=== PATIENT | female | born 1985 | race Caucasian/White ===

== ENCOUNTER 2018-10-09 03:25 | Inpatient (IN) ==
[2018-10-09] MEDS ORDERED: OXYTOCIN 30 UNITS/500 ML BAG IV PRN ×4 (04:04→20:49)
[2018-10-09] MEDS ORDERED: LACTATED RINGER'S 1,000 ML IV PRN ×4 (04:04→11:32)
[2018-10-09] MEDS ORDERED: PENICILLIN G POTASSIUM 6 MU in DEXTROSE 5% 250 ML IV STA ×2 (04:04→11:32)
[2018-10-09] MEDS: LACTATED RINGER'S 1,000 ML IV SCH ×3 (04:51→17:38)
[2018-10-09 04:57] LABS: Hematocrit (blood only) 34.5 % (37-47); Hemoglobin 11.9 g/dL (12.0-16.0); Mean Corpuscular Volume 95.6 fL (80-100); Mean Platelet Volume 11.4 fL (7.4-10.4); Platelet Count 179 K/uL (130-400); RDW Coefficient of Variation 12.5 % (11.5-14.5); Red Blood Count 3.61 M/uL (4.2-5.4); White Blood Count 10.07 K/uL (4.8-10.8)
[2018-10-09 04:58] LABS: Mean Corpuscular Hgb Conc 34.5 g/dL (32-36)
--- NOTE | 2018-10-09 05:21 | History & Physical Report ---
Date of Service October 09, 2018 Assessment & Plan (1) Amniotic fluid leakin yo at 38.4 wks with SROM, GBS+ VSS Afebrile FHR reassuring Discussed augmentation of labor with oxytocin and decreased risk of intraamniotic infection Agrees with oxytocin PCN for GBS Continue to monitor History of Present Illness Chief Complaint: Leaking Primary Care Provider: NO PCP Patient is a 33 yo at 38.4 wks who has been leaking fluids from vagina since 2 am It has been clear. Mild ctxs No VB +FM's Her has been uncomplicated except GBS+ Allergies Allergy/AdvReac Type Severity Reaction Status Date / Time No Known Allergies Allergy Mild Verified 10/09/18 04:09 Home Medications Home Medications Medication Instructions Recorded Confirmed Type vit-iron fum-folic ac 1 tab PO DAILY 09/23/18 10/09/18 History [ Vitamin] Patient History Medical History Thompson teeth removed Social History marital status: Single Current Living Situation: Significant Other Other Information That Helps Us Care for You: No Feels Safe at Home: Yes Safety Concerns: Feels Safe At This Time Smoking Status: Never smoker Hx Alcohol Use: No Hx Substance Use: No Beliefs That Will Affect Care: None Preferred Language: Guatemalan Communication Ability: Effective [employer]IED [employer] History No h/o STD's Review of Systems All systems reviewed & are unremarkable except as noted in HPI & below Physical Exam 2 Vital Signs (Past 24 Hours): Last Vital Signs Temp 36.9 C 10/09/18 04:30 Pulse 81 10/09/18 03:38 Resp 18 10/09/18 04:30 BP 120/82 10/09/18 03:38 Constitutional: WD/WN, vitals as above well nourished, + well hydrated and comfortable Gastrointestinal (Abdomen): soft, NT, gravid, Oscar 7-8 lb Genitourinary: Cervix 2 cm/ 70%/ -2, vertex Results & Data Laboratory Results 10/09/18 10/09/18 Range/Units 04:24 04:10 WBC 10.07 (4.8-10.8) K/uL RBC 3.61 L (4.2-5.4) M/uL Hgb 11.9 L (12.0-16.0) g/dL Hct 34.5 L (37-47) % MCV 95.6 (80-100) fL MCH 33.0 (25-34) pg MCHC 34.5 (32-36) g/dL RDW Std Deviation 43.0 (36.4-46.3) fL RDW Coeff of Jaspreet 12.5 (11.5-14.5) % Plt Count 179 (130-400) K/uL MPV 11.4 H (7.4-10.4) fL Amniotic Protein POS Monitoring External Monitor Categ I Tocodynamometer mild ctxs q 4-5 min
[2018-10-09] MEDS ORDERED: ePHEDrine sulfate 50 MG/ML AMP ONE (07:33)
[2018-10-09] MEDS ORDERED: BUPIVACAINE 0.25% 30 ML VIAL ONE (07:33)
[2018-10-09] MEDS ORDERED: fentaNYL 2MCG/ML ROPIV 1.25MG/ML 100 ML BAG EPI ONE ×2 (07:34→16:44)
[2018-10-09] MEDS ORDERED: fentaNYL citrate 100 MCG/2 ML VIAL ONE (07:34)
--- NOTE | 2018-10-09 08:10 | Anesthesiology Consultation ---
Date of Service October 09, 2018 Assessment & Plan (1) Encounter for pre-operative examination: Chart Review Chart Review: Patient NOT seen in Pre Admission Testing and Acceptable Risk for Labor Epidural Consults Requested none ASA ASA2 Proposed Anesthesia Anesthesia Type: Labor Epidural and CSE Risk / Benefits Reviewed With: PT / POA / Parent / Guardian, Accepts Plan and Informed Consent Obtained NPO Date Last Intake of Fluids: 10/08/18 Time Last Intake of Fluids: 23:00 Date Last Intake of Solids: 10/08/18 Time Last Intake of Solids: 23:00 History Height/Weight Height: 5 ft 4 in Weight: 101.605 kg Allergies Allergy/AdvReac Type Severity Reaction Status Date / Time No Known Allergies Allergy Mild Verified 10/09/18 04:09 Medications Home Medications Medication Instructions Recorded Confirmed Last Taken vit-iron fum-folic ac 1 tab PO DAILY 09/23/18 10/09/18 10/08/18 23:30 [ Vitamin] Active Medications Generic Name Dose Route Start Last Admin Trade Name Freq PRN Reason Stop Dose Admin Lactated Ringer's 1,000 mls @ 125 mls/hr 10/09/18 04:15 10/09/18 08:10 Lr IV 10/11/18 04:14 125 mls/hr .Q8H TYLER Infusion Lactated Ringer's 1,000 mls @ 999 mls/hr 10/09/18 04:04 10/09/18 08:09 Lr IV 11/08/18 04:03 0 mls/hr .Q1H1M PRN Titration (Pre-Anesthesia) Oxytocin 30 units in 500 mls @ 5 mls/hr 10/09/18 05:18 10/09/18 07:01 Pitocin IV 10/11/18 05:17 0.3 units/hr .Q24H PRN 5 mls/hr Labor Induction/Augmentation Titration Protocol 0.3 UNITS/HR Past Medical History Medical History Freedom teeth removed Social History Smoking Status: Never smoker Hx Alcohol Use: No Hx Substance Use: No Review of Systems no chest pain or sob Physical Exam Vital Signs Last Vital Signs Temp 36.9 C 10/09/18 07:11 Pulse 69 10/09/18 08:09 Resp 18 10/09/18 07:11 BP 120/80 10/09/18 07:36 Pulse Ox 98 10/09/18 08:09 Constitutional + obese ENMT Mouth: no dentition abnormality Respiratory normal respiratory effort Cardiovascular Rate/Rhythm: regular rate and regular rhythm Musculoskeletal Spine: no pain with cervical ROM Neurologic moves all extremities Psychiatric Orientation: alert and oriented x 3 Testing Laboratory Results 10/09/18 04:24
[2018-10-09] MEDS ORDERED: NALBUPHINE HCL INJ 10 MG/ML AMP IV PRN (08:29)
[2018-10-09] MEDS ORDERED: ePHEDrine sulfate 50 MG/ML AMP IV PRN (08:29)
[2018-10-09] MEDS ORDERED: DiphenhydrAMINE HCL 50 MG/ML VIAL IV PRN (08:29)
[2018-10-09] MEDS ORDERED: NALOXONE HCL 0.4 MG/1 ML VIAL/CARP IV PRN (08:29)
[2018-10-09] MEDS ORDERED: fentaNYL 2MCG/ML ROPIV 1.25MG/ML 100 ML BAG EPI PRN (08:29)
[2018-10-09] MEDS ORDERED: ONDANSETRON INJ 2 MG/ML 2 ML VIAL IV PRN ×2 (08:29→21:20)
[2018-10-09] MEDS ORDERED: NALOXONE HCL 1 MG in SODIUM CHLORIDE 0.9% 1000ML 1,000 ML IV PRN (08:29)
[2018-10-09] MEDS: PENICILLIN G POTASSIUM 3 MU in DEXTROSE 5% 100 ML IV PRN ×3 (08:56→19:21)
--- NOTE | 2018-10-09 09:26 | Labor Progress Brief Note ---
Date of Service October 09, 2018 Pt doing well SROM@ 0200HRs- clear On Pitocin FHR; CAt1 Ctx 1-3mins VE; 2cm Bedside sono; VT Physical Exam 2 Vital Signs (Past 24 Hours): Last Vital Signs Temp 36.9 C 10/09/18 07:11 Pulse 63 10/09/18 09:19 Resp 18 10/09/18 07:11 BP 141/82 H 10/09/18 09:13 Pulse Ox 98 10/09/18 09:19
[2018-10-09] MEDS ORDERED: PENICILLIN G POTASSIUM 3 MU in DEXTROSE 5% 100 ML IV PRN (11:32)
[2018-10-09] MEDS ORDERED: LACTATED RINGER'S 1,000 ML IV SCH (11:45)
--- NOTE | 2018-10-09 12:01 | Labor Progress Brief Note ---
Date of Service October 09, 2018 Pt doing well SROM Pit; 13mu ctx 1-3mins FHR; CAt1 VE 6-7/75/-3 Physical Exam 2 Vital Signs (Past 24 Hours): Last Vital Signs Temp 37.0 C 10/09/18 10:30 Pulse 69 10/09/18 11:54 Resp 18 10/09/18 10:30 BP 125/70 10/09/18 11:44 Pulse Ox 98 10/09/18 11:54
--- NOTE | 2018-10-09 15:53 | Labor Progress Brief Note ---
Date of Service October 09, 2018 doing well Repetitive early decles Position change has improved decels Pitocin off' IVF and oxygen given FHR improved to CAT1 VE 9cm/100/-1 No meconum presents Afebrile Plan expectant management Physical Exam 2 Vital Signs (Past 24 Hours): Last Vital Signs Temp 37.2 C 10/09/18 15:30 Pulse 73 10/09/18 15:49 Resp 22 10/09/18 15:30 BP 120/66 10/09/18 15:43 Pulse Ox 100 10/09/18 15:49
--- NOTE | 2018-10-09 17:27 | Labor Progress Brief Note ---
Date of Service October 09, 2018 Pt was sen last night and discharged this AM after evaluation for chest pain and right CVAT She has CT, pelvic sono and PE work up that was all nml. she returned back to L&D this PM because her pain persisted On arrival she has received pain meds, and IVH Pelvic exam : ft/post/ no effacement pt feels better and now wishes to go home disch with instructions Physical Exam 2 Vital Signs (Past 24 Hours): Last Vital Signs Temp 37.2 C 10/09/18 15:30 Pulse 62 10/09/18 17:19 Resp 20 10/09/18 17:00 BP 132/72 10/09/18 17:14 Pulse Ox 99 10/09/18 17:19
--- NOTE | 2018-10-09 18:08 | Labor Progress Brief Note ---
Date of Service October 09, 2018 Pt doing well FHR; CAT1 cxt ; 1-3mins pit; 4Mu VE; 10/100/0 Pt not feeling urge to push Plan pt will start to push when she feels pelvic pressure Physical Exam 2 Vital Signs (Past 24 Hours): Last Vital Signs Temp 37.2 C 10/09/18 15:30 Pulse 66 10/09/18 18:04 Resp 20 10/09/18 17:30 BP 132/79 10/09/18 17:58 Pulse Ox 99 10/09/18 18:04
--- NOTE | 2018-10-09 19:34 | Labor Progress Brief Note ---
Date of Service October 09, 2018 Pt doing well FHR CAT1 Ctx 1-3mins pit 7mu VE 10/100/+1 will start pushing Physical Exam 2 Vital Signs (Past 24 Hours): Last Vital Signs Temp 37.7 C H 10/09/18 19:00 Pulse 83 10/09/18 19:29 Resp 20 10/09/18 19:00 BP 144/82 H 10/09/18 19:28 Pulse Ox 99 10/09/18 19:29
[2018-10-09] MEDS ORDERED: METHYLERGONOVINE MALEATE 0.2 MG/ML AMP ONE (20:43)
[2018-10-09] MEDS ORDERED: miSOPROStol 200 MCG TAB PR ONE (20:49)
[2018-10-09] MEDS ORDERED: BISACODYL 10 MG SUPP PR PRN (20:49)
[2018-10-09] MEDS ORDERED: SUPERCREAM 0.870% 15 GM JAR EXT PRN (20:49)
[2018-10-09] MEDS ORDERED: METHYLERGONOVINE MALEATE 0.2 MG/ML AMP IM ONE (20:49)
[2018-10-09] MEDS ORDERED: ACETAMINOPHEN W/CODEINE #3 1 TAB PO PRN (20:49)
[2018-10-09] MEDS ORDERED: DIPHTHERIA/TETANUS/PERTUSSIS 0.5 ML SYR/VIAL IM ONE (20:49)
[2018-10-09] MEDS ORDERED: HYDROCORTISONE ACETATE 25 MG SUPP PR PRN (20:49)
[2018-10-09] MEDS ORDERED: OXYCODONE/ACETAMINOPHEN 5mg/325mg TAB PO PRN (20:49)
[2018-10-09] MEDS ORDERED: BENZOCAINE 20% AER SPR 82.5 GM CAN EXT PRN (20:49)
[2018-10-09] MEDS ORDERED: miSOPROStol 200 MCG TAB ONE (21:04)
[2018-10-09] MEDS: OXYTOCIN 20 UNITS in LACTATED RINGER'S 1,000 ML IV SCH (21:23)
--- NOTE | 2018-10-09 21:57 | Anesthesia Procedure Note ---
Date of Service October 09, 2018 Anesthesia Post Epidural Note Vital Signs Vital Signs: Temp Pulse Resp BP Pulse Ox 10/09/18 21:49 63 122/68 10/09/18 21:34 68 131/65 10/09/18 21:33 20 10/09/18 21:24 65 126/63 10/09/18 21:18 20 10/09/18 21:13 82 129/65 10/09/18 21:05 73 134/68 10/09/18 21:03 20 10/09/18 20:58 127/60 10/09/18 20:48 37.8 C H 107 H 20 118/64 10/09/18 20:44 94 H 99 10/09/18 20:43 96 H 128/69 10/09/18 20:42 98 H 136/73 10/09/18 20:39 96 H 98 10/09/18 20:34 101 H 98 10/09/18 20:29 117 H 97 10/09/18 20:28 121 H 114/65 10/09/18 20:27 126 H 130/63 10/09/18 20:24 154 H 97 10/09/18 20:19 141 H 99 10/09/18 20:15 136 H 89 L 10/09/18 20:14 142 H 128/77 98 10/09/18 20:09 117 H 100 10/09/18 20:04 97 H 99 10/09/18 20:00 22 10/09/18 19:59 95 H 98 10/09/18 19:58 110 H 152/88 H 10/09/18 19:54 98 H 100 10/09/18 19:49 100 H 99 10/09/18 19:47 95 H 92 10/09/18 19:44 79 151/86 H 100 10/09/18 19:39 76 100 10/09/18 19:34 90 100 10/09/18 19:30 20 10/09/18 19:29 83 99 10/09/18 19:28 77 144/82 H 10/09/18 19:24 81 98 10/09/18 19:19 82 98 10/09/18 19:14 73 142/79 H 99 10/09/18 19:09 82 98 10/09/18 19:04 76 99 10/09/18 19:00 37.7 C H 60 20 125/73 10/09/18 18:59 75 98 10/09/18 18:54 92 H 97 10/09/18 18:49 65 99 10/09/18 18:44 72 99 10/09/18 18:43 62 141/80 H 10/09/18 18:39 78 99 10/09/18 18:34 60 99 10/09/18 18:30 20 10/09/18 18:29 58 L 99 10/09/18 18:28 55 L 136/76 10/09/18 18:24 57 L 99 10/09/18 18:19 55 L 99 10/09/18 18:14 66 154/77 H 96 10/09/18 18:09 83 100 10/09/18 18:04 66 99 10/09/18 18:00 37.5 C 20 10/09/18 17:59 87 99 10/09/18 17:58 132/79 10/09/18 17:54 83 100 10/09/18 17:49 62 100 10/09/18 17:44 65 99 10/09/18 17:43 65 131/74 10/09/18 17:39 94 H 100 10/09/18 17:34 103 H 100 10/09/18 17:30 20 10/09/18 17:29 62 131/73 98 10/09/18 17:24 65 99 10/09/18 17:19 62 99 10/09/18 17:14 59 L 132/72 99 10/09/18 17:09 82 98 10/09/18 17:04 60 100 10/09/18 17:00 20 10/09/18 16:59 66 100 10/09/18 16:58 73 124/75 10/09/18 16:54 64 100 10/09/18 16:49 64 99 10/09/18 16:45 68 134/84 10/09/18 16:44 76 99 10/09/18 16:39 65 100 10/09/18 16:34 62 100 10/09/18 16:29 63 130/75 99 10/09/18 16:24 62 98 10/09/18 16:19 80 100 10/09/18 16:14 71 131/81 100 10/09/18 16:09 69 99 10/09/18 16:04 63 100 10/09/18 15:59 66 142/78 H 98 10/09/18 15:54 64 100 10/09/18 15:49 73 100 10/09/18 15:44 62 100 10/09/18 15:43 80 120/66 10/09/18 15:39 61 100 10/09/18 15:34 77 100 10/09/18 15:30 37.2 C 22 10/09/18 15:29 99 H 132/81 100 10/09/18 15:24 138 H 100 10/09/18 15:19 72 100 10/09/18 15:14 85 140/86 100 10/09/18 15:09 80 100 10/09/18 15:04 58 L 100 10/09/18 14:59 57 L 157/89 H 100 10/09/18 14:54 74 99 10/09/18 14:49 76 98 10/09/18 14:43 69 126/76 10/09/18 14:39 63 100 10/09/18 14:34 65 99 10/09/18 14:30 37.0 C 69 20 100 10/09/18 14:29 94 H 115/71 98 10/09/18 14:24 87 99 10/09/18 14:19 78 98 10/09/18 14:15 63 126/73 10/09/18 14:14 63 99 10/09/18 14:09 112 H 99 10/09/18 14:04 103 H 99 10/09/18 14:00 71 136/73 10/09/18 13:59 76 99 10/09/18 13:54 71 99 10/09/18 13:49 71 100 10/09/18 13:44 71 130/72 100 10/09/18 13:39 67 100 10/09/18 13:34 73 99 10/09/18 13:30 88 108/70 10/09/18 13:29 88 99 10/09/18 13:24 65 99 10/09/18 13:19 78 100 10/09/18 13:15 59 L 150/88 H 10/09/18 13:14 60 99 10/09/18 13:09 77 99 10/09/18 13:04 66 97 10/09/18 12:59 75 98 10/09/18 12:58 66 129/81 01/04/19 12:54 59 L 99 10/09/18 12:49 60 98 10/09/18 12:44 62 98 10/09/18 12:43 64 123/75 10/09/18 12:39 66 98 10/09/18 12:34 58 L 99 10/09/18 12:30 37.1 C 58 L 20 132/79 98 10/09/18 12:29 58 L 98 10/09/18 12:24 59 L 98 10/09/18 12:19 58 L 99 10/09/18 12:14 62 134/76 99 10/09/18 12:09 59 L 98 10/09/18 12:04 78 98 10/09/18 12:00 61 129/82 10/09/18 11:59 69 98 10/09/18 11:54 69 98 10/09/18 11:49 61 98 10/09/18 11:44 62 125/70 98 10/09/18 11:39 64 98 10/09/18 11:34 73 99 10/09/18 11:30 56 L 99/57 L 10/09/18 11:29 60 98 10/09/18 11:24 69 98 10/09/18 11:19 66 98 10/09/18 11:15 68 92/52 L 10/09/18 11:14 68 97 10/09/18 11:09 66 99 10/09/18 11:04 90 97 10/09/18 10:59 62 97 10/09/18 10:58 68 98/53 L 10/09/18 10:54 54 L 97 10/09/18 10:49 54 L 97 10/09/18 10:44 58 L 99/56 L 97 10/09/18 10:40 59 L 97/53 L 10/09/18 10:39 58 L 98 10/09/18 10:34 69 97 10/09/18 10:30 37.0 C 72 18 100/56 L 98 10/09/18 10:29 61 97 10/09/18 10:24 75 97 10/09/18 10:19 71 96 10/09/18 10:14 105 H 105/60 96 10/09/18 10:09 69 96 10/09/18 10:04 89 97 10/09/18 09:59 63 103/57 L 98 10/09/18 09:54 92 H 100 10/09/18 09:49 55 L 97 10/09/18 09:44 54 L 153/83 H 98 10/09/18 09:39 60 98 10/09/18 09:34 57 L 98 10/09/18 09:29 61 134/77 97 10/09/18 09:24 54 L 98 10/09/18 09:19 63 98 10/09/18 09:14 56 L 99 10/09/18 09:13 59 L 141/82 H 10/09/18 09:09 59 L 98 10/09/18 09:07 71 116/75 10/09/18 09:04 77 99 10/09/18 09:01 57 L 139/84 10/09/18 08:59 60 98 10/09/18 08:57 58 L 134/82 10/09/18 08:54 62 98 10/09/18 08:51 57 L 131/81 10/09/18 08:49 61 98 10/09/18 08:46 75 123/76 10/09/18 08:44 84 98 10/09/18 08:43 64 126/81 10/09/18 08:39 76 97 10/09/18 08:36 60 126/78 10/09/18 08:34 89 136/80 98 10/09/18 08:32 110 H 136/89 10/09/18 08:30 86 129/80 10/09/18 08:29 79 98 10/09/18 08:28 82 127/79 10/09/18 08:26 80 142/84 H 10/09/18 08:24 67 148/75 H 97 10/09/18 08:22 90 145/93 H 10/09/18 08:20 95 H 140/88 10/09/18 08:19 107 H 98 10/09/18 08:14 122 H 99 10/09/18 08:11 72 139/87 10/09/18 08:09 69 98 10/09/18 08:04 70 98 10/09/18 07:59 88 98 10/09/18 07:54 82 95 10/09/18 07:36 75 120/80 10/09/18 07:16 68 127/81 10/09/18 07:11 36.9 C 68 18 127/81 10/09/18 06:36 112 H 18 118/76 10/09/18 05:36 36.6 C 66 18 127/87 10/09/18 04:30 36.9 C 18 10/09/18 03:38 36.9 C 81 18 120/82 Pain Intensity Lower Abdomen: Pain Intensity: 2 Notes Mental Status: alert / awake / arousable and participated in evaluation Nausea / Vomiting: adequately controlled Pain: adequately controlled Airway Patency, RR, SpO2: stable & adequate BP & HR: stable & adequate Hydration State: stable & adequate Neuraxial Anesthesia: was administered and sensory block is resolving Anesthetic Complications: no major complications apparent and Pt Satisfied with anesthetic care Epidural: Removed without complications and With tip intact
[2018-10-09] MEDS: DOCUSATE SODIUM 100 MG CAP PO SCH (22:21)
[2018-10-09] MEDS: IBUPROFEN 600 MG TAB PO PRN (22:21)
[2018-10-09] MEDS: ACETAMINOPHEN 325 MG TAB PO PRN (23:29)
[2018-10-10] MEDS: IBUPROFEN 600 MG TAB PO PRN ×4 (04:43→21:30)
[2018-10-10] MEDS: OXYTOCIN 20 UNITS in LACTATED RINGER'S 1,000 ML IV SCH (05:09)
[2018-10-10 07:19] LABS: Hematocrit (blood only) 33.9 % (37-47); Hemoglobin 11.4 g/dL (12.0-16.0); Mean Corpuscular Hgb Conc 33.6 g/dL (32-36); Mean Corpuscular Volume 95.2 fL (80-100); Mean Platelet Volume 11.4 fL (7.4-10.4); Platelet Count 157 K/uL (130-400); RDW Coefficient of Variation 12.7 % (11.5-14.5); RDW Standard Deviation 43.7 fL (36.4-46.3); Red Blood Count 3.56 M/uL (4.2-5.4); White Blood Count 15.08 K/uL (4.8-10.8)
[2018-10-10] MEDS: DOCUSATE SODIUM 100 MG CAP PO SCH ×2 (09:01→21:30)
[2018-10-10] MEDS: FERROUS SULFATE 325 MG TAB PO SCH (09:01)
[2018-10-10] MEDS: PRENATAL VITAMIN 1 TAB PO SCH (09:01)
[2018-10-10] MEDS: ACETAMINOPHEN 325 MG TAB PO PRN ×3 (09:02→18:43)
--- NOTE | 2018-10-10 10:20 | Obstetrical Progress Note ---
Date of Service October 10, 2018 Subjective Patient is seen and examined. She feels well, no complaints. Ambulating without dizziness Voiding without difficulty Tolerating regular diet with out N&V Bleeding is minimal No fever/ chills/ CP/ SOB/ N&V/ Leg pain Breast feeding without problems Vital Signs Temp Pulse Pulse Resp BP BP Pulse Ox 10/10/18 05:00 36.7 C 62 16 129/85 97 10/10/18 01:40 36.8 C 96 10/10/18 00:30 37.8 C H 86 18 123/85 97 10/09/18 23:38 38.0 C H 18 10/09/18 23:22 82 119/72 10/09/18 22:34 80 126/63 10/09/18 22:33 20 10/09/18 22:19 83 133/61 10/09/18 22:11 90 145/68 H 10/09/18 22:03 20 10/09/18 21:49 63 122/68 10/09/18 21:34 68 131/65 10/09/18 21:33 20 10/09/18 21:24 65 126/63 10/09/18 21:18 20 10/09/18 21:13 82 129/65 10/09/18 21:05 73 134/68 10/09/18 21:03 20 10/09/18 20:58 127/60 10/09/18 20:48 37.8 C H 107 H 20 118/64 10/09/18 20:44 94 H 99 10/09/18 20:43 96 H 128/69 10/09/18 20:42 98 H 136/73 10/09/18 20:39 96 H 98 10/09/18 20:34 101 H 98 10/09/18 20:29 117 H 97 10/09/18 20:28 121 H 114/65 10/09/18 20:27 126 H 130/63 10/09/18 20:24 154 H 97 10/09/18 20:19 141 H 99 10/09/18 20:15 136 H 89 L 10/09/18 20:14 142 H 128/77 98 10/09/18 20:09 117 H 100 10/09/18 20:04 97 H 99 10/09/18 20:00 22 10/09/18 19:59 95 H 98 10/09/18 19:58 110 H 152/88 H 10/09/18 19:54 98 H 100 10/09/18 19:49 100 H 99 10/09/18 19:47 95 H 92 10/09/18 19:44 79 151/86 H 100 10/09/18 19:39 76 100 10/09/18 19:34 90 100 10/09/18 19:30 20 10/09/18 19:29 83 99 10/09/18 19:28 77 144/82 H 10/09/18 19:24 81 98 10/09/18 19:19 82 98 10/09/18 19:14 73 142/79 H 99 10/09/18 19:09 82 98 10/09/18 19:04 76 99 10/09/18 19:00 37.7 C H 60 20 125/73 10/09/18 18:59 75 98 10/09/18 18:54 92 H 97 10/09/18 18:49 65 99 10/09/18 18:44 72 99 10/09/18 18:43 62 141/80 H 10/09/18 18:39 78 99 10/09/18 18:34 60 99 10/09/18 18:30 20 10/09/18 18:29 58 L 99 10/09/18 18:28 55 L 136/76 10/09/18 18:24 57 L 99 10/09/18 18:19 55 L 99 10/09/18 18:14 66 154/77 H 96 10/09/18 18:09 83 100 10/09/18 18:04 66 99 10/09/18 18:00 37.5 C 20 10/09/18 17:59 87 99 10/09/18 17:58 132/79 10/09/18 17:54 83 100 10/09/18 17:49 62 100 10/09/18 17:44 65 99 10/09/18 17:43 65 131/74 10/09/18 17:39 94 H 100 10/09/18 17:34 103 H 100 10/09/18 17:30 20 10/09/18 17:29 62 131/73 98 10/09/18 17:24 65 99 10/09/18 17:19 62 99 10/09/18 17:14 59 L 132/72 99 01/04/19 17:09 82 98 10/09/18 17:04 60 100 10/09/18 17:00 20 10/09/18 16:59 66 100 10/09/18 16:58 73 124/75 10/09/18 16:54 64 100 10/09/18 16:49 64 99 10/09/18 16:45 68 134/84 10/09/18 16:44 76 99 10/09/18 16:39 65 100 10/09/18 16:34 62 100 10/09/18 16:29 63 130/75 99 10/09/18 16:24 62 98 10/09/18 16:19 80 100 10/09/18 16:14 71 131/81 100 10/09/18 16:09 69 99 10/09/18 16:04 63 100 10/09/18 15:59 66 142/78 H 98 10/09/18 15:54 64 100 10/09/18 15:49 73 100 10/09/18 15:44 62 100 10/09/18 15:43 80 120/66 10/09/18 15:39 61 100 10/09/18 15:34 77 100 10/09/18 15:30 37.2 C 22 10/09/18 15:29 99 H 132/81 100 10/09/18 15:24 138 H 100 10/09/18 15:19 72 100 10/09/18 15:14 85 140/86 100 10/09/18 15:09 80 100 10/09/18 15:04 58 L 100 10/09/18 14:59 57 L 157/89 H 100 10/09/18 14:54 74 99 10/09/18 14:49 76 98 10/09/18 14:43 69 126/76 10/09/18 14:39 63 100 10/09/18 14:34 65 99 10/09/18 14:30 37.0 C 69 20 100 10/09/18 14:29 94 H 115/71 98 10/09/18 14:24 87 99 10/09/18 14:19 78 98 10/09/18 14:15 63 126/73 10/09/18 14:14 63 99 10/09/18 14:09 112 H 99 10/09/18 14:04 103 H 99 10/09/18 14:00 71 136/73 10/09/18 13:59 76 99 10/09/18 13:54 71 99 10/09/18 13:49 71 100 10/09/18 13:44 71 130/72 100 10/09/18 13:39 67 100 10/09/18 13:34 73 99 10/09/18 13:30 88 108/70 10/09/18 13:29 88 99 10/09/18 13:24 65 99 10/09/18 13:19 78 100 10/09/18 13:15 59 L 150/88 H 10/09/18 13:14 60 99 10/09/18 13:09 77 99 10/09/18 13:04 66 97 10/09/18 12:59 75 98 10/09/18 12:58 66 129/81 10/09/18 12:54 59 L 99 10/09/18 12:49 60 98 10/09/18 12:44 62 98 10/09/18 12:43 64 123/75 10/09/18 12:39 66 98 10/09/18 12:34 58 L 99 10/09/18 12:30 37.1 C 58 L 20 132/79 98 10/09/18 12:29 58 L 98 10/09/18 12:24 59 L 98 10/09/18 12:19 58 L 99 10/09/18 12:14 62 134/76 99 10/09/18 12:09 59 L 98 10/09/18 12:04 78 98 10/09/18 12:00 61 129/82 10/09/18 11:59 69 98 10/09/18 11:54 69 98 10/09/18 11:49 61 98 10/09/18 11:44 62 125/70 98 10/09/18 11:39 64 98 10/09/18 11:34 73 99 10/09/18 11:30 56 L 99/57 L 10/09/18 11:29 60 98 10/09/18 11:24 69 98 10/09/18 11:19 66 98 10/09/18 11:15 68 92/52 L 10/09/18 11:14 68 97 10/09/18 11:09 66 99 10/09/18 11:04 90 97 10/09/18 10:59 62 97 10/09/18 10:58 68 98/53 L 10/09/18 10:54 54 L 97 10/09/18 10:49 54 L 97 10/09/18 10:44 58 L 99/56 L 97 10/09/18 10:40 59 L 97/53 L 10/09/18 10:39 58 L 98 10/09/18 10:34 69 97 10/09/18 10:30 37.0 C 72 18 100/56 L 98 10/09/18 10:29 61 97 10/09/18 10:24 75 97 Intake and Output 10/09/18 10/10/18 10/10/18 22:59 06:59 14:59 Intake Total 3882.500 / 3882.500 1168.750 / 1168.750 Output Total 300 / 300 250 / 250 Balance 3582.500 / 3582.500 918.750 / 918.750 Intake: IV 3882.500 / 3882.500 1168.750 / 1168.750 Lr 1,000 ml @ 999 mls/hr IV . 3000.00 / 3000.00 Q1H1M PRN Rx#:[id number] Pitocin 20 Units In Lr 1,000 ml 1168.750 / 1168.750 @ 125 mls/hr IV .Q8H1M TYLER Rx# :[id number] PITOCIN 30 units In 500 ml @ 59 408.500 / 408.500 .94 UNITS/HR 999 mls/hr IV . Q24H PRN Rx#:[id number] Pfizerpen 3 Mu In D5 100 ml @ 212 / 212 100 mls/hr IV Q4H PRN Rx#: [id number] Pfizerpen 6 Mu In D5w 250 ml @ 262 / 262 262 mls/hr IV NOW STA Rx#: [id number] Output: Urine 300 / 300 250 / 250 10/10/18 Range/Units 06:53 WBC 15.08 H (4.8-10.8) K/uL RBC 3.56 L (4.2-5.4) M/uL Hgb 11.4 L (12.0-16.0) g/dL Hct 33.9 L (37-47) % MCV 95.2 (80-100) fL MCH 32.0 (25-34) pg MCHC 33.6 (32-36) g/dL RDW Std Deviation 43.7 (36.4-46.3) fL RDW Coeff of Jaspreet 12.7 (11.5-14.5) % Plt Count 157 (130-400) K/uL MPV 11.4 H (7.4-10.4) fL PE: General: Alert, orientedx3, NAD Abd: soft, NT, fundus firm, below Umbilicus Perineum intact, Lochia rubra minimal Ext; NT, no edema AP: 33 yo s/p , ppd# 1 VSS Afebrile doing well Continue routine care All questions were answered D/C home tomorrow Physical Exam 2 Vital Signs (Past 24 Hours): Last Vital Signs Temp 36.7 C 10/10/18 05:00 Pulse 62 10/10/18 05:00 Resp 16 10/10/18 05:00 BP 129/85 10/10/18 05:00 Pulse Ox 97 10/10/18 05:00
[2018-10-10] MEDS ORDERED: BISACODYL 5 MG TABEC PO SCH (20:00)
[2018-10-11] MEDS: IBUPROFEN 600 MG TAB PO PRN ×4 (01:18→17:26)
[2018-10-11 06:45] LABS: Basophils # (auto) 0.01 K/uL (0-0.2); Basophils % (auto) 0.1 %; Eosinophils # (auto) 0.14 K/uL (0-0.5); Eosinophils % (auto) 1.3 %; Hematocrit (blood only) 30.1 % (37-47); Immature Granulocytes # (auto) 0.04 K/uL (0.00-0.02); Immature Granulocytes % (auto) 0.4 %; Lymphocytes # (auto) 1.37 K/uL (1.2-3.4); Lymphocytes % (auto) 12.7 %; Mean Corpuscular Hgb Conc 33.2 g/dL (32-36); Mean Corpuscular Volume 97.7 fL (80-100); Mean Platelet Volume 10.5 fL (7.4-10.4); Monocytes # (auto) 0.59 K/uL (0.11-0.59); Monocytes % (auto) 5.5 %; Neutrophils # (auto) 8.67 K/uL (1.4-6.5); Platelet Count 147 K/uL (130-400); RDW Standard Deviation 45.1 fL (36.4-46.3); Red Blood Count 3.08 M/uL (4.2-5.4); White Blood Count 10.82 K/uL (4.8-10.8)
[2018-10-11] MEDS: ACETAMINOPHEN 325 MG TAB PO PRN ×2 (07:26→15:32)
[2018-10-11] MEDS: DOCUSATE SODIUM 100 MG CAP PO SCH (08:42)
[2018-10-11] MEDS: FERROUS SULFATE 325 MG TAB PO SCH (08:42)
[2018-10-11] MEDS: PRENATAL VITAMIN 1 TAB PO SCH (08:42)
--- NOTE | 2018-10-11 09:39 | Obstetrical Progress Note ---
Date of Service October 11, 2018 Subjective Patient is seen and examined. She feels well, no complaints. Ambulating without dizziness Voiding without difficulty Tolerating regular diet with out N&V Bleeding is minimal No fever/ chills/ CP/ SOB/ N&V/ Leg pain Breast feeding without problems Discussed contraception, desires to start POP Vital Signs Temp Pulse Resp BP Pulse Ox 10/11/18 00:10 36.5 C 76 16 112/75 98 10/10/18 21:45 36.6 C 77 16 106/73 98 10/10/18 15:00 36.6 C 78 18 97/68 L 96 10/10/18 12:35 36.5 C 76 18 120/79 97 10/11/18 Range/Units 06:35 WBC 10.82 H (4.8-10.8) K/uL RBC 3.08 L (4.2-5.4) M/uL Hgb 10.0 L (12.0-16.0) g/dL Hct 30.1 L (37-47) % MCV 97.7 (80-100) fL MCH 32.5 (25-34) pg MCHC 33.2 (32-36) g/dL RDW Std Deviation 45.1 (36.4-46.3) fL RDW Coeff of Jaspreet 13.0 (11.5-14.5) % Plt Count 147 (130-400) K/uL MPV 10.5 H (7.4-10.4) fL Immature Gran % (Auto) 0.4 % Neut % (Auto) 80.0 % Lymph % (Auto) 12.7 % Grundy % (Auto) 5.5 % Eos % (Auto) 1.3 % Baso % (Auto) 0.1 % Immature Gran # (Auto) 0.04 H (0.00-0.02) K/uL Neut # (Auto) 8.67 H (1.4-6.5) K/uL Lymph # (Auto) 1.37 (1.2-3.4) K/uL Grundy # (Auto) 0.59 (0.11-0.59) K/uL Eos # (Auto) 0.14 (0-0.5) K/uL Baso # (Auto) 0.01 (0-0.2) K/uL PE: General: Alert, orientedx3, NAD Abd: soft, NT, fundus firm, below Umbilicus Perineum intact, Lochia rubra minimal Ext; NT, no edema AP: 33 yo s/p , ppd# 2 VSS Afebrile doing well Continue routine care All questions were answered D/C home , f/u in office Physical Exam 2 Vital Signs (Past 24 Hours): Last Vital Signs Temp 36.5 C 10/11/18 00:10 Pulse 76 10/11/18 00:10 Resp 16 10/11/18 00:10 BP 112/75 10/11/18 00:10 Pulse Ox 98 10/11/18 00:10
--- NOTE | 2018-10-12 07:22 | Delivery Summary ---
DATE OF OPERATION: 10/09/2018 The patient delivered a live infant male in left occiput anterior presentation with loose nuchal cord, which was delivered reduced, and was placed on mother's abdomen and cord clamped after 1 minute. 's is 8 and 9, weight is pending. Cord blood was obtained. Placenta was spontaneously delivered. Inspection of the placenta shows a normal gross looking placenta with 3-vessel cord. Inspection of the perineum showed a second-degree midline laceration which was repaired in layers with 2-0 and 3-0 Vicryl. Rectal exam post repair shows good sphincter tone. Estimated blood loss was 600 mL. Patient and are doing well in recovery. All instruments are removed from the vagina including retractors, needles, sutures, lap sponges and accounted for x2. I attest to the content of the Intraoperative Record and any orders documented therein. Any exception s are noted below.
== END 2018-10-11 20:55 | disposition home or self-care (01) | DRG 807 ==
LOC: OPB 03:25 → 4S1 03:28 → 4S2 10-10 00:10